=== PATIENT | male | born 1995 | race Caucasian/White ===

== ENCOUNTER 2022-03-18 16:39 | Outpatient (CLI) | payer BC, SELFPAY ==
--- NOTE | 2022-03-18 17:15 | USR_ITS ---
PROCEDURE INFORMATION: Exam: US Abdomen, Limited; Right Upper Quadrant Exam date and time: 03/18/2022 5:03 PM Age: 27 years old Clinical indication: Abdominal pain; Generalized; Additional info: R10.11 - right upper quadrant pain TECHNIQUE: Imaging protocol: Real time ultrasound of the abdomen with image documentation. Limited exam focused on the right upper quadrant. COMPARISON: No relevant prior studies available. FINDINGS: Liver: Normal. No masses. Gallbladder: Normal. No gallstones. There is no gallbladder wall thickening. Biliary ducts: Normal. No stones. No dilation. Pancreas: Visualized pancreas is unremarkable. Right kidney: Normal. No mass. No hydronephrosis. US/US gall bladder [id number] IMPRESSION: No acute findings.
== END 2022-03-18 16:40 | disposition home or self-care (01) ==
PROVIDERS: Family Provider Nurse Practitioner; PCP Family Medicine; Visit Provider Family Medicine
DX: R10.11 Right upper quadrant pain (principal)
CPT/HCPCS: 76705

== ENCOUNTER 2022-03-18 17:49 | Emergency (ER) | payer BC, SELFPAY ==
[2022-03-18 17:53] VITALS: BP 174/95; PULSE 62; RESP 16; TEMP 36.4; O2SAT 100
[2022-03-18 19:24] LABS: Basophils # 0.1 10^3/uL (0.0-0.1); Basophils % 0.8 %; Eosinophils # 0.1 10^3/uL (0.0-0.8); Eosinophils % 1.2 %; Hematocrit 47.3 % (42.0-52.0); Hemoglobin 15.4 g/dL (11.7-16.6); Lymphocytes # 2.1 10^3/uL (0.8-4.8); Lymphocytes % 28.2 %; Mean Corpuscular HGB Conc 32.6 g/dL (30.0-36.0); Mean Corpuscular Hemoglobin 29.8 pg (28.0-34.0); Mean Corpuscular Volume 91.7 fl (80-94); Mean Platelet Volume 10.2 fL (7.4-10.4); Monocytes # 0.8 10^3/uL (0.2-0.9); Monocytes % 10.1 %; Neutrophils # 4.49 10^3/uL (1.8-7.7); Neutrophils % 59.4 %; Nucleated Red Blood Cells % 0 %; Platelet Count 285 10^3/cmm (130-400); Red Blood Count 5.16 10^6/uL (4.1-5.3); White Blood Count 7.6 10^3/uL (4.0-10.0)
[2022-03-18 20:24] LABS: Alanine Aminotransferase 15 U/L (0-41); Albumin Level 4.7 g/dL (3.5-5.2); Alkaline Phosphatase 55 U/L (40-130); Anion Gap 15.1 (5-19); Aspartate Amino Transferase 22 U/L (0-40); Blood Urea Nitrogen 14 mg/dL (6-20); Calcium 9.4 mg/dL (8.5-10.5); Carbon Dioxide 27 mmol/L (22-29); Chloride 104 mmol/L (98-107); Globulin 2.8 g/dL (1.3-4.6); Glomerular Filtration Rate 80.3 mL/min (90-130); Glucose 92 mg/dL (65-115); Lipase 30 U/L (13-60); Osmolality Calculated 294 mOsm/kg (285-295); Potassium 4.1 mmol/L (3.5-5.1); Sodium 142 mmol/L (136-145); Total Bilirubin 0.6 mg/dL (0.15-1.2); Total Protein 7.5 g/dL (6.6-8.7)
--- NOTE | 2022-03-18 21:12 | CTR_ITS ---
PROCEDURE INFORMATION: Exam: CT Abdomen And Pelvis Without Contrast Exam date and time: 03/18/2022 9:56 PM Age: 27 years old Clinical indication: Abdominal pain; Localized; Right upper quadrant (ruq); Patient HX: Ruq pain, black stools with green in them per PT; Additional info: Abd pain TECHNIQUE: Imaging protocol: Computed tomography of the abdomen and pelvis without contrast. Radiation optimization: All CT scans at this facility use at least one of these dose optimization techniques: automated exposure control; mA and/or kV adjustment per patient size (includes targeted exams where dose is matched to clinical indication); or iterative reconstruction. COMPARISON: US gall bladder [id number] 03/18/2022 5:03 PM RADIATION DOSE METRICS: Total DLP (mGy-cm): 761.55 FINDINGS: Lungs: Lung bases are clear. Liver: The liver is normal. Gallbladder and bile ducts: The gallbladder is normal. There is no biliary dilation. Pancreas: The pancreas is unremarkable. Spleen: The spleen is unremarkable. Adrenal glands: The adrenal glands are unremarkable. Kidneys and ureters: The kidneys are unremarkable. No hydronephrosis or stones. No ureteral dilation. Stomach and bowel: The stomach is decompressed, preventing meaningful evaluation of wall thickness. The small bowel is nondilated. The colon is unremarkable. Appendix: The appendix is normal. Intraperitoneal space: There is no free air or significant intraperitoneal free fluid. Vasculature: The aorta is unremarkable. There is no aneurysm. Lymph nodes: There is no lymphadenopathy in the retroperitoneum, mesentery, pelvis or inguinal regions. Urinary bladder: The urinary bladder is unremarkable. Reproductive: The prostate and seminal vesicles are unremarkable. Bones/joints: Bones are unremarkable. Soft tissues: The abdominal wall is intact. CT/CT abdomen pelvis con [id number] IMPRESSION: No acute findings.
--- NOTE | 2022-03-18 21:12 | ED_ITS ---
HPI - Abdominal Pain General: Chief Complaint: Abdominal Pain Stated Complaint: Abd pain Time Seen by Provider: 03/18/22 21:08 Source: patient Mode of arrival: ambulatory Limitations: no limitations History of Present Illness: 27-year-old male states he been having abdominal pain over the last 2 weeks. States been intermittent as a stabbing type pain in his right upper quadrant. He denies any worsening proving factors he did have an ultrasound outpatient today that was normal but states he had worsening pain today. His pain currently is a 2 out of 10. No fevers. Associated Symptoms: Denies chills, dysuria and fever(s) Review of Systems Const: Denies: fever(s), chills, body aches or change in appetite Eyes: Denies: blurry vision or eye discomfort ENMT: Denies: throat pain or dental pain Card: Denies: chest pain Resp: Denies: dyspnea GI: Reports: abdominal pain : Denies: dysuria Musc: Denies: neck pain or back pain Skin/Breast: Denies: rash Neuro: Denies: headache(s) Psych: Denies: depression [place]/Lymph: Denies: easy bruising All/Imm: Denies: urticaria PFSH ED PFSH: Medical History (Updated 03/18/22 @ 22:46 by Shamar Billy MD) No pertinent past medical history Social History Smoking and tobacco status: never smoked Physical Exam 2 Const: COMMON NORMALS: no acute distress, patient oriented x3 and healthy appearing HENMT: COMMON NORMALS: normocephalic and atraumatic HEAD & SCALP: normocephalic and atraumatic Eye: COMMON NORMALS: Equal, round and reactive pupils present and EOMs intact bilaterally PUPIL: Yes Equal, round and reactive pupils present Neck/C-Spine: COMMON NORMALS: full ROM and supple Chest: COMMONS NORMALS: normal inspection of the chest and normal palpation of entire chest wall Resp: COMMON NORMALS: normal respiratory effort, No retractions, No use of accessory muscles and clear to auscultation bilaterally AUSCULTATION: clear to auscultation bilaterally Cardio: COMMON NORMALS: regular rate, regular rhythm and No murmurs present (Cardio) RATE: regular rate RHYTHM: regular rhythm GI: COMMON NORMALS: Normal to inspection, nondistended, normoactive bowel sounds present, Soft to palpation, non-tender and no masses PALPATION: Yes Soft to palpation Extremity: COMMON NORMALS: normal to inspection and full ROM Neuro: COMMON NORMALS: patient oriented x3, moves all extremities and no focal motor deficits Psych: COMMON NORMALS: mental status grossly normal, Normal thought process present and cooperative THOUGHT PROCESS: Normal thought process present Skin: COMMON NORMALS: no rashes or lesions noted and no wounds GENERAL SKIN EXAM: no rashes or lesions noted Course Vital Signs: Vital signs: Vital Signs Temperature 97.5 F L 03/18/22 17:53 Pulse Rate 62 03/18/22 17:53 Respiratory Rate 16 03/18/22 17:53 Blood Pressure 174/95 03/18/22 17:53 Pulse Oximetry 100 03/18/22 17:53 Oxygen Delivery Me thod 03/18/22 17:53 MDM - Abdominal Pain Medical Decision Making Patient presents with abdominal pain CT blood work here are all normal could be a gastritis we will start him on Protonix we will get him follow-up with surgery. Lab Data 03/18/22 18:55 03/18/22 18:55 Labs/Radiology: Radiology Impressions Abdomen/Pelvis CT 03/18/22 21:12 IMPRESSION: No acute findings. Laboratory Results WBC 7.6 10^3/uL (4.0-10.0) 03/18/22 18:55 RBC 5.16 10^6/uL (4.1-5.3) 03/18/22 18:55 Hgb 15.4 g/dL (11.7-16.6) 03/18/22 18:55 Hct 47.3 % (42.0-52.0) 03/18/22 18:55 MCV 91.7 fl (80-94) 03/18/22 18:55 MCH 29.8 pg (28.0-34.0) 03/18/22 18:55 MCHC 32.6 g/dL (30.0-36.0) 03/18/22 18:55 RDW 12.0 % (12.1-15.1) L 03/18/22 18:55 Plt Count 285 10^3/cmm (130-400) 03/18/22 18:55 MPV 10.2 fL (7.4-10.4) 03/18/22 18:55 Neut % (Auto) 59.4 % 03/18/22 18:55 Lymph % (Auto) 28.2 % 03/18/22 18:55 [place] % (Auto) 10.1 % 03/18/22 18:55 Eos % (Auto) 1.2 % 03/18/22 18:55 Baso % (Auto) 0.8 % 03/18/22 18:55 Neut # (Auto) 4.49 10^3/uL (1.8-7.7) 03/18/22 18:55 Lymph # (Auto) 2.1 10^3/uL (0.8-4.8) 03/18/22 18:55 [place] # (Auto) 0.8 10^3/uL (0.2-0.9) 03/18/22 18:55 Eos # (Auto) 0.1 10^3/uL (0.0-0.8) 03/18/22 18:55 Baso # (Auto) 0.1 10^3/uL (0.0-0.1) 03/18/22 18:55 Nucleated RBC % (auto) 0 % 03/18/22 18:55 Nucleated RBCs # 0.0 /100WBC 03/18/22 18:55 Sodium 142 mmol/L (136-145) 03/18/22 18:55 Potassium 4.1 mmol/L (3.5-5.1) 03/18/22 18:55 Chloride 104 mmol/L (98-107) 03/18/22 18:55 Carbon Dioxide 27 mmol/L (22-29) 03/18/22 18:55 Anion Gap 15.1 (5-19) 03/18/22 18:55 BUN 14 mg/dL (6-20) 03/18/22 18:55 Creatinine 1.1 mg/dL (0.7-1.2) 03/18/22 18:55 GFR Calculation 80.3 mL/min (90-130) L 03/18/22 18:55 Glucose 92 mg/dL (65-115) 03/18/22 18:55 Calculated Osmolality 294 mOsm/kg (285-295) 03/18/22 18:55 Calcium 9.4 mg/dL (8.5-10.5) 03/18/22 18:55 Total Bilirubin 0.6 mg/dL (0.15-1.2) 03/18/22 18:55 AST 22 U/L (0-40) 03/18/22 18:55 ALT 15 U/L (0-41) 03/18/22 18:55 Alkaline Phosphatase 55 U/L (40-130) 03/18/22 18:55 Total Protein 7.5 g/dL (6.6-8.7) 03/18/22 18:55 Albumin 4.7 g/dL (3.5-5.2) 03/18/22 18:55 Globulin 2.8 g/dL (1.3-4.6) 03/18/22 18:55 Lipase 30 U/L (13-60) 03/18/22 18:55 Discharge Plan Discharge Patient Disposition: Home Clinical Impression: Abdominal pain Condition: Stable Prescriptions: New Protonix 40 mg tablet,delayed release (DR/EC) 40 mg PO DAILY Qty: 60 0RF No Action hyoscyamine sulfate 0.125 mg tablet, sublingual 0.125 mg PO QID Qty: 30 0RF Discharge Orders: Discharge ED (Routine); Ordered 03/18/22 Ordered By: Shamar Billy Referrals: Mamadou Mayorga DO [Physician] - 1-3 days No Douglass MD [Primary Care Provider] - Discharge Activity: Resume usual activity Patient Instructions: Abdominal Pain (ED) Coding Level of Care Code ED [employer] Helper for Chg Fwd Exam Comprehensive
[2022-03-18 21:32] VITALS: BP 131/75; PULSE 48; RESP 18; O2SAT 98
[2022-03-18] MEDS: ondansetron 2 mg/ML SDV 2 mL 4 MG IVP (21:42)
[2022-03-18] MEDS: morphine 4 mg/mL SDV 1 mL IVP (21:43)
[2022-03-18] MEDS: HYDROcodone-acetaminophen 5-325 mg Tablet 1 TAB PO (22:28)
[2022-03-18 23:12] VITALS: BP 125/73; PULSE 48; RESP 18; O2SAT 98
--- NOTE | 2022-03-21 10:59 | DCPLANNER ---
Addendum entered by Shelly Pfeiffer 04/29/22 07:22: Patient had a follow up appointment at general surgery - patient did attend appointment. Addendum entered by Shelly Pfeiffer 03/24/22 11:55: Patient has a follow up appointment scheduled for Monday, April 13, 2022 at 2:[address] Mayorga at general surgery. Clinic will call patient with appointment information. Original Note: manufacturing area manager had message to schedule a follow up appointment for patient with general surgery. manufacturing area manager sent patients information to the front office staff at general surgery. Patients information will be printed and reviewed. Clinic will call patient with appointment information.
== END 2022-03-18 23:13 | disposition home or self-care (01) ==
PROVIDERS: Emergency Provider Emergency Medicine; PCP Family Medicine
DX: R10.9 Unspecified abdominal pain (principal)
CPT/HCPCS: 36415; 74176; 80053; 83690; 85025; 96374; 96375; 99285; J2270; J2405

== ENCOUNTER → 2022-03-22 09:43 | Outpatient (BNVA) | payer BC, SELFPAY | PROVIDERS: PCP Family Medicine; Visit Provider Family Medicine | DX: R10.11 Right upper quadrant pain (principal) | CPT/HCPCS: 87338 ==

== ENCOUNTER 2022-05-13 09:41 | Outpatient (CLI) | payer BC, SELFPAY ==
--- NOTE | 2022-05-13 10:00 | NM_ITS ---
WS: [id number] N[facility]LE[facility] SCAN CLINICAL INFORMATION: R10.11 - Right upper quadrant pain TECHNIQUE: Following intravenous administration of 7.2 mCi of technetium 99m mebrofenin, images of th e abdomen were obtained over the course of 60 minutes. Next, gallbladder ejection fraction was determ ined by obtaining preprandial and one-hour postprandial images of the gallbladder following oral blanca stion of Ensure. COMPARISON: Ultrasound March 18, 2022 FINDINGS: Normal hepatic uptake at 5 minutes. Normal hepatic excretion. Gallbladder is visualized by 10 minutes . No evidence of acute cholecystitis. Normal common bile duct and small bowel activity. Gallbladder ejection fraction 52% within normal limits. No evidence of chronic cholecystitis. NM/NM hepatobiliary w phar* [id number] IMPRESSION: 1. No evidence of acute or chronic cholecystitis. 2. Gallbladder ejection fraction 52% within normal limits.
== END 2022-05-13 09:42 | disposition home or self-care (01) ==
PROVIDERS: PCP Family Medicine; Visit Provider Family Medicine
DX: R10.11 Right upper quadrant pain (principal)
CPT/HCPCS: 78227; A9537